=== PATIENT | male | born 1955 | race Caucasian/White ===

== ENCOUNTER → 2017-01-31 | Outpatient (CLI) | payer OTHER | END | disposition home or self-care (01) | LOC: CVU 15:34 | PROVIDERS: ATTEND Internal Medicine Cardiovascular Disease | DX: Z01.810 Encounter for preprocedural cardiovascular examination (principal); I08.1 Rheumatic disorders of both mitral and tricuspid valves; I48.0 Paroxysmal atrial fibrillation | CPT/HCPCS: 93306 ==

== ENCOUNTER 2017-12-08 08:06 | Day surgery (SDC) | payer OTHER ==
[~2017-12-08] VITALS: Ht 182.9 cm; Wt 93.7 kg
[~2017-12-08 08:06] MED LIST: ASPI-650 PO; BUPIVACAINE/PF-EPI 0.5% 1:200K ONE; CALC200T3 PO; FLEC50TA25 PO; IBUP-1221 PO; IBUP1TAB11 PO; KETO15CR2 TD; LANS30CA60 PO; MULT-224 PO; VALA500T PO
[2017-12-08 08:58] VITALS: BP 128/80
[2017-12-08] MEDS ORDERED: LACTATED RINGERS 1,000 ML IV SCH (09:03)
[2017-12-08] MEDS ORDERED: ONDANSETRON 2MG/ML, 2ML IVPush ONE (09:30)
[2017-12-08] MEDS ORDERED: FENTANYL PF 250 MCG/5ML ONE (09:30)
[2017-12-08] MEDS ORDERED: MIDAZOLAM 1 MG/ML, 2ML ONE (09:30)
[2017-12-08] MEDS ORDERED: SCOPOLAMINE PATCH, 1.5MG PATCH.TD72 TD ONE (09:30)
[2017-12-08] MEDS ORDERED: HYDROmorphone 1 MG/ML, 1ML IV PRN (09:30)
[2017-12-08] MEDS ORDERED: GABAPENTIN 300 MG CAPSULE PO ONE (09:30)
[2017-12-08] MEDS ORDERED: LABETALOL 5MG/ML, 20ML IV PRN (09:30)
[2017-12-08] MEDS ORDERED: hydrALAzine 20 MG/ML, 1ML IV PRN (09:30)
[2017-12-08] MEDS ORDERED: ACETAMINOPHEN 500 MG TABLET PO ONE (09:30)
[2017-12-08] MEDS ORDERED: OXYcodone 5 MG/5 ML ORAL.SOL UDC PO PRN (09:30)
[2017-12-08] MEDS ORDERED: ONDANSETRON 2MG/ML, 2ML IV PRN (09:30)
[2017-12-08] MEDS ORDERED: PROMETHAZINE 12.5 MG SUPP PR PRN (09:30)
[2017-12-08] MEDS ORDERED: MEPERIDINE/PF 25MG/0.5ML IVPush PRN (09:30)
[2017-12-08] MEDS ORDERED: PROPOFOL 10 MG/ML, 20ML ONE (09:45)
[2017-12-08] MEDS ORDERED: CEFOTETAN PMX 2GM/50ML 50 ML ONE (09:45)
[2017-12-08] MEDS ORDERED: ROCURONIUM 10MG/ML,5ML ONE (09:45)
[2017-12-08] MEDS ORDERED: DEXAMETHASONE 4 MG/ML, 1ML ONE (10:22)
[2017-12-08] MEDS ORDERED: FENTANYL PF 100 MCG/2ML ONE (11:23)
[2017-12-08] MEDS ORDERED: OXYcodone 5 MG/5 ML ORAL.SOL UDC ONE ×2 (11:23→11:25)
[2017-12-08] MEDS: FENTANYL PF 100 MCG/2ML IV PRN ×2 (11:27→11:42)
== END 2017-12-08 14:40 | disposition home or self-care (01) ==
LOC: OUT 08:06
PROVIDERS: ATTEND Surgery
DX: K81.1 Chronic cholecystitis (principal); K42.9 Umbilical hernia without obstruction or gangrene; K66.0 Peritoneal adhesions (postprocedural) (postinfection); I48.91 Unspecified atrial fibrillation; Z68.28 Body mass index [BMI] 28.0-28.9, adult; K21.9 Gastro-esophageal reflux disease without esophagitis; Z88.0 Allergy status to penicillin; Z88.8 Allergy status to other drugs, medicaments and biological substances; Z98.49 Cataract extraction status, unspecified eye; Z79.899 Other long term (current) drug therapy; Z98.890 Other specified postprocedural states
CPT/HCPCS: 47562; 49585; 88304; J1100; J2250; J2405; J2704; J3010; J7120; S0074

== ENCOUNTER 2020-11-10 08:52 | Outpatient (CLI) | payer MEDICARE ==
[~2020-11-10 08:52] MED LIST changes: +ASPI-1026 PO; -ASPI-650 PO; -BUPIVACAINE/PF-EPI 0.5% 1:200K ONE; +KETO15CR17 TD; -KETO15CR2 TD; -MULT-224 PO; +MULT-642 PO; -VALA500T PO; +VALA500T8 PO
== END 2020-11-10 23:59 | disposition home or self-care (01) ==
LOC: CVU 08:52
PROVIDERS: ATTEND Internal Medicine Cardiovascular Disease
DX: I37.1 Nonrheumatic pulmonary valve insufficiency (principal); I65.23 Occlusion and stenosis of bilateral carotid arteries; I48.0 Paroxysmal atrial fibrillation; I67.9 Cerebrovascular disease, unspecified
CPT/HCPCS: 93306; 93356; 93880